=== PATIENT | male | born 1965 | race Caucasian/White ===

== ENCOUNTER → 2016-05-12 | Outpatient (REF) ==
[~2016-05-12] MED LIST: AMBIEN CR12.5 MG PO; ATIVAN1 MG PO; CARAFATE 1GM1 G PO; CEFTIN250 MG; FAMVIR500 MG PO; KAPIDEX60 MG PO; PERCOCET 5/321 UDTAB PO; PERCOCET 500 MG1 TAB PO; PHENERGAN 25 TA25 MG PO; PREDNISONE20 MG PO; TEMAZEPAM; ZANTAC; [UNRECOGNIZED DRUG - REMARK]
[2016-05-12 12:15] LABS: PSA-TOTAL 1.09 ng/mL (0-4)
[2016-05-12 12:19] LABS: C-REACTIVE PROTEIN < 0.5 mg/dL (0.0-0.9)
== END ==
LOC: ZLAB.WCH 11:18
PROVIDERS: Internal Medicine
DX: Z01.89 Encounter for other specified special examinations (principal)
CPT/HCPCS: G0103

== ENCOUNTER 2018-02-19 13:56 | Day surgery (SDC) | payer BC ==
[~2018-02-19] VITALS: Ht 172.7 cm; Wt 86.0 kg
[2018-02-19] MEDS ORDERED: ZANTAC 150MG T150 MG PO (14:16)
[2018-02-19] MEDS ORDERED: PROTONIX 40MG T40 MG PO (14:17)
[2018-02-19] MEDS ORDERED: NORVASC 5MG5 MG/TAB PO (14:18)
[2018-02-19] MEDS ORDERED: NORVASC 10MG10 MG PO (14:18)
[2018-02-19] MEDS ORDERED: XANAX 0.5MG0.5 MG PO (14:18)
[2018-02-19] MEDS ORDERED: NORCO 325 MG-51 TAB PO (14:19)
[2018-02-19] MEDS ORDERED: PERCOCET 325 MG1 TA3 PO (14:19)
[2018-02-19] MEDS ORDERED: CARAFATE 1GM1 G PO (14:20)
[2018-02-19] MEDS ORDERED: AMITRIPTYLINE H25 M1 PO (14:21)
[2018-02-19 14:35] VITALS: BP 144/88; PULSE 60; TEMP 97.9
[2018-02-19 15:45] VITALS: BP 138/97; PULSE 62; TEMP 97.6
--- NOTE | 2018-02-19 15:45 | NUR ---
PATIENT BACK FROM ENDO SUITE. AMBULATED TO CHAIR WITH MINIMAL ASSIST. ULTRASOUND OF ABD ORDERED, US TECH ARRIVED. VS APPEAR STABLE, WILL CONTINUE TO MONITOR. FATHER AT BEDSIDE.
[2018-02-19 15:47] LABS: HEMATOCRIT 40.3 % (42.0-52.0); HEMOGLOBIN 14.6 g/dl (13.5-18.0); MEAN CELL VOLUME 88 fl (80.0-100.0); MEAN CORPUSCULAR HEMOGLOBIN 32 pg (27.0-31.0); MEAN CORPUSCULAR HGB CONC 36 g/dl (33.0-37.0); MEAN PLATELET VOLUME 9.4 fl (7.4-10.4); PLATELET COUNT 170 K/mm3 (130-400); RED BLOOD COUNT 4.56 M/mm3 (4.20-5.60); REDCELL DISTRIBUTION WIDTH-CV 11.6 % (11.5-14.5)
[2018-02-19 16:00] VITALS: BP 154/90; PULSE 55
--- NOTE | 2018-02-19 16:00 | NUR ---
PATIENT TALKATIVE IN CHAIR. US OF ABD DONE. FATHER AT BEDSIDE. VS APPEAR STABLE. GAVE PATIENT WATER, DOES NOT WANT ANY FOOD AT THIS TIME. WILL CONTINUE TO MONITOR. DR STILL NEEDS TO SEE PATIENT.
[2018-02-19 16:15] VITALS: BP 144/87; PULSE 50
--- NOTE | 2018-02-19 16:15 | NUR ---
PATIENT IS VISITING WITH FATHER. DR IS ABOUT TO GO INTO PATIENT ROOM. VS APPEAR STABLE. WILL DISCHARGE PATIENT SOON DR IS DONE TALKING TO PATIENT.
[2018-02-19 16:16] VITALS: BP 143/98; PULSE 66
[2018-02-19 16:25] LABS: ALBUMIN 4.1 gm/dL (3.5-5.0); BILIRUBIN,TOTAL 0.6 mg/dL (0.0-1.0); CALCIUM 8.3 mg/dL (8.4-10.2); CREATININE, serum 0.91 mg/dL (0.66-1.25); POTASSIUM 3.7 mmol/L (3.4-5.0); TOTAL PROTEIN 6.8 gm/dL (6.4-8.2)
== END 2018-02-19 16:37 | disposition home or self-care (01) ==
LOC: SDCO 13:56
PROVIDERS: Internal Medicine Gastroenterology
DX: K29.30 Chronic superficial gastritis without bleeding (principal); K21.9 Gastro-esophageal reflux disease without esophagitis; R10.13 Epigastric pain; J45.909 Unspecified asthma, uncomplicated; K58.9 Irritable bowel syndrome, unspecified; E88.89 Other specified metabolic disorders
CPT/HCPCS: J2250; J2405; J3010; J7030

== ENCOUNTER → 2018-12-03 | Outpatient (CLI) | payer BC ==
[~2018-12-03] MED LIST changes: +AMITRIPTYLINE H25 M1 PO; +NORCO 325 MG-51 TAB PO; +NORVASC 10MG10 MG PO; +NORVASC 5MG5 MG/TAB PO; +PERCOCET 325 MG1 TA3 PO; +PROTONIX 40MG T40 MG PO; +XANAX 0.5MG0.5 MG PO; +ZANTAC 150MG T150 MG PO
== END ==
LOC: COL.RAD 08:05
DX: K21.9 Gastro-esophageal reflux disease without esophagitis (principal); R68.81 Early satiety; R14.0 Abdominal distension (gaseous)
CPT/HCPCS: A9541

== ENCOUNTER 2023-08-02 11:12 | Day surgery (SDC) | payer BC ==
[~2023-08-02] VITALS: Ht 172.7 cm; Wt 82.6 kg
[~2023-08-02 11:12] MED LIST changes: +LR 1,000 ML IV SCH; +Ondansetron 4 MG/2 ML VIAL IV PRN
[2023-08-02 12:19] VITALS: BP 124/87; PULSE 58; TEMP 97.6
[2023-08-02 13:10] VITALS: BP 122/92; PULSE 52
[2023-08-02 13:20] VITALS: BP 123/91; PULSE 55
--- NOTE | 2023-08-02 13:27 | NUR ---
1310 PATIENT RETURNS TO [facility] VIA CART. PT AWAKE AND ALERT. RESPIRATIONS UNLABORED. AMBULATED TO RECLINER CHAIR WITH 2:1 SBA. PT DENIES NAUSEA OR ABDOMINAL PAIN. HOOKED UP TO MONITOR AND VS OBTAINED. CALL LIGHT AT SIDE. . 1315 PATIENT TOLERATING SPRITE AND JELLO, ALBARO CRACKERS WITHOUT NAUSEA OR DIFFICULTY SWALLOWING (EGD ONLY). 1320 IN ROOM SPEAKING WITH PATIENT. 1330 D/C INSTRUCTIONS REVIEWED WITH PATIENT. PT VERBALIZED UNDERSTANDING AND A COPY OF INSTRUCTIONS PROVIDED IN D/C FOLDER. 1345 PATIENT DRESSES SELF. 1400 PATIENT DISCHARGED FROM UNIT VIA W/C TO A PERSONAL VEHICLE. PT LEFT HOSPITAL IN STABLE CONDITION.
[2023-08-02 13:30] VITALS: BP 125/95; PULSE 52
== END 2023-08-02 13:53 | disposition home or self-care (01) ==
LOC: SDCO 11:12
DX: Z12.11 Encounter for screening for malignant neoplasm of colon (principal); D12.5 Benign neoplasm of sigmoid colon; K21.00 Gastro-esophageal reflux disease with esophagitis, without bleeding; K29.80 Duodenitis without bleeding; K44.9 Diaphragmatic hernia without obstruction or gangrene; K57.30 Diverticulosis of large intestine without perforation or abscess without bleeding; Z79.899 Other long term (current) drug therapy
CPT/HCPCS: J2704; J7120